=== PATIENT | female | born 1975 | race Caucasian/White ===

== ENCOUNTER 2019-01-25 23:00 | Emergency (ER) | payer SELFPAY ==
[2019-01-26] MEDS ORDERED: Benztropine 1 MG Tab PO STA (00:01)
[2019-01-26] MEDS ORDERED: Haloperidol Lactate 5 MG/ML SDV IM ONE (00:01)
[2019-01-26] MEDS ORDERED: Penicillin V Potassium 500 MG Tab PO STA (00:01)
[2019-01-26] MEDS ORDERED: Naproxen 500 MG Tab PO STA (00:01)
--- NOTE | 2019-01-26 00:08 | EDM.PDOC ---
ED HPI GENERAL MEDICAL PROBLEM - General Chief Complaint: Headache Stated Complaint: MIGRAINE Time Seen by Provider: 01/25/19 23:14 Source of Information: Reports: Patient History Limitations: Reports: No Limitations - History of Present Illness INITIAL COMMENTS - FREE TEXT/NARRATIVE: The patient states that she has had impacted bilateral lower wisdom teeth for the past 5 years, approximately. She states that she saw a dentist who told her that she needs to see an oral surgeon to have the teeth fractured before removal , but she has not been able to do so, citing lack of insurance. She states that she woke this morning with bilateral dental pain, worse on the left than the right, which then introduced a "migraine". The patient states that she gets fairly frequent headaches, which she describes as a pressure sensation involving her entire head, made worse if she is supine. She will have photophobia, but rarely phonophobia. No visual changes. No nausea or vomiting. No neurologic symptoms, such as tingling, numbness, or weakness. She states that she has never previously been formally evaluated for a migraine, and has never had an imaging study of her head, however, she states that she was told by a GP in the past that she had migraines, and was prescribed Fioricet. No recent fever. No recent oral drainage. The patient does not have a PCP. She goes to the [facility] as needed. Headache Pain Score (Numeric/FACES): 8 Left Lower Tooth/Teeth Pain Score (Numeric/FACES): 10 - Related Data Allergies Allergy/AdvReac Type Severity Reaction Status Date / Time adhesive Allergy Blisters Verified 01/25/19 23:14 butorphanol [From Stadol] Allergy Anaphylactic Verified 01/25/19 23:13 Shock morphine Allergy Redness Verified 01/25/19 23:14 Home Meds: Home Meds Naproxen 1 tab PO Q12H PRN #20 tablet 01/26/19 [Rx] Penicillin V Potassium 1 tab PO Q6HR #40 tab 01/26/19 [Rx] Rizatriptan Benzoate [Rizatriptan] 1 tab PO Q2H PRN #3 tab.rapdis 01/26/19 [Rx] Past Medical History Respiratory History: Reports: Sleep Apnea (suspected, not tested) Genitourinary History: Reports: Urinary Incontinence (stress incontinence) Neurological History: Reports: Headaches, Chronic Endocrine/Metabolic History: Reports: Hypothyroidism (untreated x 3 years), Obesity/BMI 30+ - Past Surgical History HEENT Surgical History: Reports: Oral Surgery (upper wisdom teeth extractions) Female Surgical History: Reports: Tubal Ligation (bilateral) Social & Family History - Tobacco Use Smoking Status *Q: Former Smoker Years of Tobacco use: 20 Packs/Tins Daily: 0.8 Month/Year Tobacco Last Used: Quit 2014 - Caffeine Use Caffeine Use: Reports: Coffee, Soda, Tea - Alcohol Use Alcohol Use History: No - Recreational Drug Use Recreational Drug Use: No - Living Situation & Occupation Living situation: Reports: , with Spouse 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 ED EXAM, ENT - Physical Exam Exam: See Below Exam Limited By: No Limitations General Appearance: Alert, WD/WN, No Apparent Distress (no apparent photophobia or phonophobia) Eye Exam: Bilateral Eye: EOMI, Normal Inspection Ears: Normal External Exam, Normal Canal, Hearing Grossly Normal, Normal TMs Nose: Normal Inspection, Normal Mucousa, No Blood Mouth/Throat: Normal Inspection, Normal Gums, Normal Lips, Normal Oropharynx, Other (Tooth #1 absent. Tooth #6 with a small kellee on the side. Tooth #7 absent. Tooth #10 absent. Teeth #11 with a small kellee on the side. Tooth #16 absent. Tooth #17 (the tooth of concern) absent. Tooth #32 absent.) Head: Atraumatic, Normocephalic Neck: Normal Inspection, Supple, Full Range of Motion, Tender Lateral (Tender to the left inframandibular region). No: Lymphadenopathy (L), Lymphadenopathy ( R) Respiratory/Chest: No Respiratory Distress, Lungs Clear, Normal Breath Sounds, No Accessory Muscle Use Cardiovascular: Normal Peripheral Pulses, Regular Rate, Rhythm, No Gallop, No JVD, No Murmur, No Rub GI/Abdominal: Normal Bowel Sounds, Soft, Non-Tender, No Organomegaly, No Distention, No Abnormal Bruit, No Mass, Other (Obese) (Female) Exam: Deferred Rectal (Female) Exam: Deferred Back: Normal Inspection, Full Range of Motion Extremities: Normal Inspection, Normal Range of Motion, No Pedal Edema, Normal Capillary Refill Neurological: Alert, Oriented, Normal Cognition, No Motor/Sensory Deficits Psychiatric: Normal Affect Skin: Warm, Dry, Intact, Normal Color, No Rash Course - Vital Signs Last Recorded V/S: Last Vital Signs Temp 35.9 C 01/25/19 23:08 Pulse 89 01/25/19 23:08 Resp 20 01/25/19 23:08 BP 135/82 01/25/19 23:08 Pulse Ox 94 L 01/25/19 23:08 - Orders/Labs/Meds Meds: Medications Discontinued Medications Generic Name Dose Route Start Last Admin Trade Name Shira PRN Reason Stop Dose Admin Benztropine Mesylate 1 mg 01/26/19 00:01 01/26/19 00:14 Cogentin PO 01/26/19 00:02 1 mg ONETIME STA Administration Haloperidol Lactate 5 mg 01/26/19 00:01 01/26/19 00:14 Haldol IM 01/26/19 00:02 5 mg ONETIME ONE Administration Naproxen 500 mg 01/26/19 00:01 01/26/19 00:14 Naprosyn PO 01/26/19 00:02 500 mg ONETIME STA Administration Penicillin V Potassium 500 mg 01/26/19 00:01 01/26/19 00:14 Veetids PO 01/26/19 00:02 500 mg ONETIME STA Administration - Re-Assessments/Exams Free Text/Narrative Re-Assessment/Exam: 01/26/19 00:02 As per the HPI, the patient is complaining of a generalized headache that was started by dental pain. The patient's description of her current headache, which is similar to her usual headaches, is not a good description for a migraine. Her description is more consistent with pseudotumor cerebri, however, she has never been formally evaluated for her headaches. For today's purposes, the patient will receive Haldol and Cogentin in order to treat a migraine. If Haldol does not help, referral to a Neurologist for a MRI and LP is indicated. With respect to the patient's dental pain, I do not see any obvious signs of infection, but the patient does have tenderness to her left inframandibular area , therefore I will start her on penicillin and naproxen, and prescribe a 10-day course of each. The patient will also be given a list of local dentists with whom to follow-up. 01/26/19 00:59 The patient indicates that her headache is "somewhat better". I will therefore discharge her home with prescriptions for penicillin, naproxen, and rizariptan. She will be given a list of local dentists. She requested a note for work. Departure - Departure Time of Disposition: 01:00 Disposition: Home, Self-Care 01 Condition: Good Clinical Impression: Dentalgia, Cephalgia - Discharge Information *PRESCRIPTION DRUG MONITORING PROGRAM REVIEWED*: Not Applicable *COPY OF PRESCRIPTION DRUG MONITORING REPORT IN PATIENT MAHIN: Not Applicable Prescriptions: Penicillin V Potassium 1 tab PO Q6HR #40 tab Naproxen 1 tab PO Q12H PRN #20 tablet PRN Reason: Pain Rizatriptan Benzoate [Rizatriptan] 1 tab PO Q2H PRN #3 tab.rapdis PRN Reason: Headache Instructions: General Headache Without Cause, [id number] Referrals: PCP,None [Primary Care Provider] - Forms: ED Department Discharge, ED Return to Work/School Form Additional Instructions: You were seen in the emergency room for a headache caused by lower dental pain. Your headache was treated with a neuroleptic, with some improvement, indicating that your headache may been migrainous. You have been started on the antibiotic penicillin. Prescriptions for penicillin, naproxen, and the anti-migraine medicine rizatriptan (Maxalt) have been sent to the [facility], located just south and across the [address] from [facility]. Take one tablet of penicillin every 6 hours, as prescribed. Finish the entire prescription unless told otherwise by a doctor or dentist. Take one tablet of naproxen every 12 hours, with food, as needed for dental pain. If you take naproxen, do not also take other NSAIDs, such as aspirin or ibuprofen (Advil, Motrin). Dissolve one tablet of rizatriptan in your mouth, like a lozenge, at the earliest sign of a headache. You may repeat after 2 hours, if necessary, to a maximum of 3 tablets within a 24-hour period. If this medicine works for you, you can get an additional prescription from your PCP. A note for work has been provided to you. You have been provided with a list of local dentists. You need to follow-up with a dentist within 10 days. If any other problems, please do not hesitate to return to the ER.
== END 2019-01-26 01:19 | disposition home or self-care (01) ==
LOC: JD.ED 23:00
DX: K02.9 Dental caries, unspecified (principal); R51 Headache; Z88.5 Allergy status to narcotic agent; Z91.048 Other nonmedicinal substance allergy status; Z88.8 Allergy status to other drugs, medicaments and biological substances; Z98.51 Tubal ligation status; Z87.891 Personal history of nicotine dependence
CPT/HCPCS: 96372; 99283; A9270; J1630

== ENCOUNTER 2019-03-08 12:45 | Emergency (ER) | payer SELFPAY ==
[2019-03-08] MEDS ORDERED: Ondansetron 4 MG/2 ML SDV IVPUSH ONE (13:34)
[2019-03-08] MEDS ORDERED: Sodium Chloride 0.9% 1,000 ML IV SCH (13:45)
--- NOTE | 2019-03-08 15:19 | EDM.PDOC ---
ED HPI GENERAL MEDICAL PROBLEM - General Chief Complaint: Abdominal Pain Stated Complaint: ABDOMINAL PAIN AND GALLBLADDER Time Seen by Provider: 03/08/19 13:03 Source of Information: Reports: Patient, RN Notes Reviewed History Limitations: Reports: No Limitations - History of Present Illness INITIAL COMMENTS - FREE TEXT/NARRATIVE: Patient is a 44-year-old female who presents to the ED for evaluation of right upper quadrant pain. Patient states she's been having issues with this going on for the past 3 or 4 days, she states that after she eats she gets a sharp stabbing pain sometimes 20-30 minutes after eating other times, is roughly an hour or so after eating. The patient states that the pain does radiate to her back, she has been taking Prevacid, and Tums, however this does not seem to be helping much at all. She denies any chest pain, shortness of breath, she complains of mild nausea with some of the pain flares, but no vomiting or diarrhea. She states that her BM this morning was softer than normal. She denies any fevers or chills, she states she has a history of hypothyroidism, she was being treated with medication, however she is currently not being treated with medication. She does not have a primary care provider. She is not a smoker, she does not drink, and she denies any drug use. The patient states that yesterday she ate half of a whopper, and then this morning she had some cookies and this seemed to aggravate the pain. 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: Reports: Other (see below) Other 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: prevacid at 0730 - Related Data Allergies Allergy/AdvReac Type Severity Reaction Status Date / Time adhesive Allergy Blisters Verified 01/25/19 23:14 butorphanol [From Stadol] Allergy Anaphylactic Verified 01/25/19 23:13 Shock morphine Allergy Redness Verified 01/25/19 23:14 Home Meds: Home Meds Cetirizine HCl [Zyrtec] 10 mg PO BEDTIME 03/08/19 [History] Lansoprazole [Prevacid] 30 mg PO DAILY 03/08/19 [History] Past Medical History Respiratory History: Reports: Sleep Apnea Genitourinary History: Reports: Urinary Incontinence Neurological History: Reports: Headaches, Chronic Endocrine/Metabolic History: Reports: Hypothyroidism, Obesity/BMI 30+ - Past Surgical History Female Surgical History: Reports: Tubal Ligation Social & Family History - Tobacco Use Smoking Status *Q: Former Smoker Used Tobacco, but Quit: Yes Month/Year Tobacco Last Used: 4 yr - Caffeine Use Caffeine Use: Reports: Coffee, Soda, Tea - Recreational Drug Use Recreational Drug Use: No - Living Situation & Occupation Living situation: Reports: , with Spouse 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 Denies: Constipation, Diarrhea, Vomiting : Reports: No Symptoms Musculoskeletal: Reports: No Symptoms Skin: Reports: No Symptoms Neurological: Reports: No Symptoms Psychiatric: Reports: No Symptoms Hematologic/Lymphatic: Reports: No Symptoms ED EXAM, GI/ABD - Physical Exam Exam: See Below Exam Limited By: No Limitations General Appearance: Alert, WD/WN, No Apparent Distress Eyes: Bilateral: Normal Appearance Throat/Mouth: Normal Inspection, Normal Lips, Normal Teeth, Normal Gums, Normal Oropharynx, Normal Voice, No Airway Compromise Head: Atraumatic, Normocephalic Neck: Normal Inspection Respiratory/Chest: No Respiratory Distress, Lungs Clear, Normal Breath Sounds, No Accessory Muscle Use, Chest Non-Tender GI/Abdominal Exam: Normal Bowel Sounds, Soft, No Distention, No Mass, Tender ( RUQ mainly, Howard sign positive.) Back Exam: Normal Inspection Extremities: Normal Inspection, Normal Capillary Refill Neurological: Alert, Oriented, Normal Cognition, No Motor/Sensory Deficits Psychiatric: Normal Affect, Normal Mood Skin Exam: Warm, Dry, Intact, Normal Color, No Rash Course - Vital Signs Last Recorded V/S: Last Vital Signs Temp 98.0 F 03/08/19 17:05 Pulse 88 03/08/19 17:05 Resp 16 03/08/19 17:05 BP 123/75 03/08/19 17:05 Pulse Ox 97 03/08/19 17:05 - Orders/Labs/Meds Labs: Laboratory Tests 03/08/19 03/08/19 03/08/19 Range/Units 13:50 13:50 14:12 WBC 9.31 (3.98-10.04) K/mm3 RBC 4.56 (3.98-5.22) M/mm3 Hgb 14.6 (11.2-15.7) gm/dl Hct 43.4 (34.1-44.9) % MCV 95.2 H (79.4-94.8) fl MCH 32.0 (25.6-32.2) pg MCHC 33.6 (32.2-35.5) g/dl RDW Std Deviation 45.1 (36.4-46.3) fL Plt Count 286 (182-369) K/mm3 MPV 9.6 (9.4-12.3) fl Neutrophils % (Manual) 75 H (40-60) % Band Neutrophils % 0 (0-10) % Lymphocytes % (Manual) 23 (20-40) % Atypical Lymphs % 0 % Monocytes % (Manual) 1 L (2-10) % Eosinophils % (Manual) 1 (0.7-5.8) % Basophils % (Manual) 0 L (0.1-1.2) Platelet Estimate Adequate RBC Morph Comment Normal Sodium (136-145) mEq/L Potassium (3.5-5.1) mEq/L Chloride (98-107) mEq/L Carbon Dioxide (21-32) mEq/L Anion Gap (5-15) BUN (7-18) mg/dL Creatinine (0.55-1.02) mg/dL Est Cr Clr Drug Dosing mL/min Estimated GFR (MDRD) (>60) mL/min BUN/Creatinine Ratio (14-18) Glucose (74-106) mg/dL Calcium (8.5-10.1) mg/dL Total Bilirubin (0.2-1.0) mg/dL GGT (5-55) U/L AST (15-37) U/L ALT (14-59) U/L Alkaline Phosphatase (46-116) U/L Total Protein (6.4-8.2) g/dl Albumin (3.4-5.0) g/dl Globulin gm/dL Albumin/Globulin Ratio (1-2) Lipase (73-393) U/L Urine Color Yellow (Yellow) Urine Appearance Slt cloudy H (Clear) Urine pH 5.5 (5.0-8.0) Ur Specific [place] > or = 1.030 (1.005-1.030) Urine Protein Negative (Negative) Urine Glucose (UA) Negative (Negative) Urine Ketones Negative (Negative) Urine Occult Blood Negative (Negative) Urine Nitrite Negative (Negative) Urine Bilirubin Negative (Negative) Urine Urobilinogen 0.2 (0.2-1.0) Ur Leukocyte Esterase Negative (Negative) Urine RBC 0-5 (0-5) /hpf Urine WBC 0-5 (0-5) /hpf Ur Epithelial Cells 0-5 (0-5) /hpf Urine Bacteria Not seen (FEW) /hpf Urine Mucus Not seen (FEW) /hpf Urine HCG, Qual Negative (NEGATIVE) 03/08/19 Range/Units 14:12 WBC (3.98-10.04) K/mm3 RBC (3.98-5.22) M/mm3 Hgb (11.2-15.7) gm/dl Hct (34.1-44.9) % MCV (79.4-94.8) fl MCH (25.6-32.2) pg MCHC (32.2-35.5) g/dl RDW Std Deviation (36.4-46.3) fL Plt Count (182-369) K/mm3 MPV (9.4-12.3) fl Neutrophils % (Manual) (40-60) % Band Neutrophils % (0-10) % Lymphocytes % (Manual) (20-40) % Atypical Lymphs % % Monocytes % (Manual) (2-10) % Eosinophils % (Manual) (0.7-5.8) % Basophils % (Manual) (0.1-1.2) Platelet Estimate RBC Morph Comment Sodium 139 (136-145) mEq/L Potassium 4.1 (3.5-5.1) mEq/L Chloride 104 (98-107) mEq/L Carbon Dioxide 27 (21-32) mEq/L Anion Gap 12.1 (5-15) BUN 12 (7-18) mg/dL Creatinine 0.8 (0.55-1.02) mg/dL Est Cr Clr Drug Dosing 74.23 mL/min Estimated GFR (MDRD) > 60 (>60) mL/min BUN/Creatinine Ratio 15.0 (14-18) Glucose 90 (74-106) mg/dL Calcium 9.2 (8.5-10.1) mg/dL Total Bilirubin 0.2 (0.2-1.0) mg/dL GGT 25 (5-55) U/L AST 47 H (15-37) U/L ALT 63 H (14-59) U/L Alkaline Phosphatase 87 (46-116) U/L Total Protein 8.2 (6.4-8.2) g/dl Albumin 3.6 (3.4-5.0) g/dl Globulin 4.6 gm/dL Albumin/Globulin Ratio 0.8 L (1-2) Lipase 76 (73-393) U/L Urine Color (Yellow) Urine Appearance (Clear) Urine pH (5.0-8.0) Ur Specific [place] (1.005-1.030) Urine Protein (Negative) Urine Glucose (UA) (Negative) Urine Ketones (Negative) Urine Occult Blood (Negative) Urine Nitrite (Negative) Urine Bilirubin (Negative) Urine Urobilinogen (0.2-1.0) Ur Leukocyte Esterase (Negative) Urine RBC (0-5) /hpf Urine WBC (0-5) /hpf Ur Epithelial Cells (0-5) /hpf Urine Bacteria (FEW) /hpf Urine Mucus (FEW) /hpf Urine HCG, Qual (NEGATIVE) Meds: Medications Discontinued Medications Generic Name Dose Route Start Last Admin Trade Name Freq PRN Reason Stop Dose Admin Diatrizoate Meglum/Diatrizoate Sod 120 ml 03/08/19 15:39 Gastrografin 37% PO 03/08/19 15:40 ONETIME ONE Sodium Chloride 1,000 mls @ 999 mls/hr 03/08/19 13:45 03/08/19 14:20 Normal Saline IV 999 mls/hr ASDIRECTED DB Administration Iopamidol 100 ml 03/08/19 15:39 03/08/19 15:54 Isovue-300 (61%) IVPUSH 03/08/19 15:40 100 ml ONETIME ONE Administration Ondansetron HCl 4 mg 03/08/19 13:34 03/08/19 14:18 Zofran IVPUSH 03/08/19 13:35 4 mg ONETIME ONE Administration Sodium Chloride 10 ml 03/08/19 15:39 03/08/19 15:54 Saline Flush FLUSH 10 ml ONETIME PRN Administration IV FLUSH - Re-Assessments/Exams Free Text/Narrative Re-Assessment/Exam: 03/08/19 13:40 Patient presents to the ED for the evaluation of right upper quadrant pain. Her pain is suspicious for gallbladder etiology, did order CBC, CMP, UA, lipase , GGT, qualitative hCG, IV with some IV fluids, 4 mg of Zofran, and an abdomen pelvis CT with oral and IV contrast for initial evaluation. 03/08/19 15:52 Patient's labs are completely, and do not demonstrate any sign of acute abnormalities at this time, CT scan is still pending. 03/08/19 16:[address] is done, and demonstrate no abnormality of the gallbladder that is commented on, appendix is within normal limits. There is an elongated fluid- filled structure noted within the right lower pelvis measuring 8.7 cm in its greatest dimension. Uncertain if this is in an adnexal cyst or represents a prominent hydrosalpinx. No other additional pelvic abnormality appreciated. This likely could be causing her referred pain, and will have her follow up with GYROSCOPIC ENGINEERING TECHNICIAN for further management regarding this abnormality. Patient will be given a copy of her CT results. She'll be discharged home with general recommendations. Departure - Departure Time of Disposition: 16:53 Disposition: Home, Self-Care 01 Condition: Fair Clinical Impression: RUQ abdominal pain, Pelvic cyst - Discharge Information *PRESCRIPTION DRUG MONITORING PROGRAM REVIEWED*: No *COPY OF PRESCRIPTION DRUG MONITORING REPORT IN PATIENT MAHIN: No Instructions: Ovarian Cyst, [id number] Referrals: PCP,None [Primary Care Provider] - Forms: ED Department Discharge Additional Instructions: You were evaluated in the ED today for your right upper quadrant abdominal pain. Your laboratory evaluation was within normal limits, there was no abnormalities appreciated at today's visit, your gallbladder labs were also within normal limits. Recommend that you keep taking the Prevacid on a daily basis, as you could have some sort of heartburn issues causing your burning postprandial upper abdominal pain. A CT was done, and demonstrates an elongated fluid-filled structure noted within your right lower pelvis measuring 8.7 cm in dimension, the radiologist was uncertain if this is an adnexal cyst or a prominent hydrosalpinx, which is an enlarged fallopian tube. Recommend that you follow up with GYROSCOPIC ENGINEERING TECHNICIAN of choice for further management. Our [facility] number is [phone], the [facility] is [phone]. You were given a copy of your CT results in her discharge packet. You may take 500 mg Tylenol or 600 mg ibuprofen every 6 hours as needed for further pain relief. Do not take more than 4000 mg Tylenol or 3200 mg ibuprofen in a 24-hour time span. Please return to the ED if your symptoms should change or worsen.
[2019-03-08] MEDS ORDERED: Sodium Chloride 0.9% 10 ML Syringe FLUSH PRN (15:39)
[2019-03-08] MEDS ORDERED: Diatrizoate Meglumine/Diatrizoate Sodium 37% 120 ML Bottle PO ONE (15:39)
[2019-03-08] MEDS ORDERED: Iopamidol 612 MG/ML 100 ML Bottle IVPUSH ONE (15:39)
--- NOTE | 2019-03-08 16:21 | CT ---
CT abdomen and pelvis Technique: Multiple axial sections were obtained from above the dome of the diaphragm inferiorly through the pubic symphysis. Intravenous and oral contrast was utilized. Delayed images were also obtained through the bladder. Findings: Visualized lung bases show nothing acute. Diffuse fatty infiltration is noted within the liver. Spleen appears within normal limits. Adrenal glands show no nodule. Kidneys show symmetric contrast enhancement without hydronephrosis or mass. Pancreas is within normal limits. Aorta shows no aneurysm. No retroperitoneal adenopathy or mesenteric abnormalities are seen. Appendix felt to be visualized and is normal in size. Elongated fluid-filled structure is noted within the right lower pelvis measuring 8.7 cm in greatest dimension. Uncertain if this is an adnexal cyst or represents a prominent hydrosalpinx. No additional pelvic abnormality is appreciated. Delayed images shows contrast within the distal ureters and bladder. Bone window settings were reviewed which shows no acute osseous abnormality. Small fat-containing umbilical hernia is noted. Impression: 1. Fatty infiltration throughout the liver. 2. Elongated fluid collection within the right side of the pelvis either due to adnexal cyst or prominent hydrosalpinx. 3. Other nonacute findings as noted above. Diagnostic code #3
== END 2019-03-08 17:05 | disposition home or self-care (01) ==
LOC: JD.ED 12:45
DX: R10.11 Right upper quadrant pain (principal); N94.89 Other specified conditions associated with female genital organs and menstrual cycle; E66.9 Obesity, unspecified; Z91.048 Other nonmedicinal substance allergy status; Z88.5 Allergy status to narcotic agent; Z87.891 Personal history of nicotine dependence; Z68.41 Body mass index [BMI] 40.0-44.9, adult
CPT/HCPCS: 36415; 74177; 80053; 81001; 81025; 82977; 83690; 85007; 85027; 96361; 96374; 99284; J2405; J7040; Q9963; Q9967